=== PATIENT | male | born 1935 | race Caucasian/White ===

== ENCOUNTER 2016-08-06 14:46 | Outpatient (CLI) | payer MEDICARE ==
--- NOTE | 2016-08-06 21:51 | RAD ---
RIGHT KNEE FIVE VIEWS: Date: 08-06-16 FINDINGS: There is a large amount of soft tissue swelling anterior to the patella. Nevertheless, the patella appears intact with no sign of fracture. I see no joint effusion. The distal femur and proximal ti jasmyne appear intact. Osteoarthritis of the knee is noted with medial joint space narrowing and osteop hytes. Patellofemoral osteophytes are present as well. There is calcification in the distal SFA an d popliteal artery. IMPRESSION: Significant soft tissue swelling. POS: HOME
--- NOTE | 2016-08-06 21:59 | RAD ---
LEFT WRIST THREE VIEWS: Date: 08-06-16 FINDINGS: No acute fracture was seen. The carpal bones all currently appear intact. A small irregularity on the distal pole of the scaphoid does not appear acute. The scapholunate distance is borderline at 2 .7 mm. Sometimes, this can signify scapholunate disassociation. There is calcification of the radi al artery. IMPRESSION: No acute bony findings. Borderline increased distance between the scaphoid and lunate. POS: HOME
== END 2016-08-06 14:47 | disposition home or self-care (01) ==
LOC: BURRAD 14:46
PROVIDERS: ATTEND Family Medicine
DX: M25.532 Pain in left wrist (principal); M25.561 Pain in right knee; M79.89 Other specified soft tissue disorders

== ENCOUNTER 2016-10-18 10:30 | Outpatient (CLI) | payer MEDICARE ==
[2016-10-18 11:32] LABS: Anion Gap 15 mmol/L (10-20); BUN (Urea Nitrogen) 22 mg/dL (8.4-25.7); Calc. Creatinine Clearance 0 mL/min (70-130); Calcium 9.1 mg/dL (7.8-10.44); Carbon Dioxide 25 mmol/L (23-31); Chloride 106 mmol/L (98-107); Estimated GFR-MDRD 88; Glucose 150 mg/dL (83-110); Potassium 4.1 mmol/L (3.5-5.1); Sodium 142 mmol/L (136-145)
== END 2016-10-18 10:31 | disposition home or self-care (01) ==
LOC: BURLAB 10:30
PROVIDERS: ATTEND Internal Medicine Cardiovascular Disease
DX: E78.2 Mixed hyperlipidemia (principal); I48.2 Chronic atrial fibrillation; E11.9 Type 2 diabetes mellitus without complications
CPT/HCPCS: 36415; 80048

== ENCOUNTER 2016-11-12 16:13 | Outpatient (CLI) | payer MEDICARE | END 2016-11-12 16:14 | disposition home or self-care (01) | LOC: BURLAB 16:13 | PROVIDERS: ATTEND Urology | DX: C61 Malignant neoplasm of prostate (principal) | CPT/HCPCS: 36415; 84153 ==

== ENCOUNTER 2017-02-08 15:24 | Outpatient (CLI) | payer MEDICARE ==
[2017-02-08 16:21] LABS: ALT (SGPT) 14 U/L (8-55); AST (SGOT) 16 U/L (5-34); Albumin 4.5 g/dL (3.4-4.8); Alkaline Phosphatase 89 U/L (40-150); Anion Gap 13 mmol/L (10-20); BUN (Urea Nitrogen) 18 mg/dL (8.4-25.7); Bilirubin, Total 2.2 mg/dL (0.2-1.2); Calc. Creatinine Clearance 0 mL/min (70-130); Calcium 9.3 mg/dL (7.8-10.44); Carbon Dioxide 25 mmol/L (23-31); Cardiac Risk 3.1 (Less than 4.5); Chloride 104 mmol/L (98-107); Cholesterol 120 mg/dl (< 200 Desired); Estimated GFR-MDRD Greater than 90; Globulin 2.2 g/dL (2.4-3.5); Glucose 122 mg/dL (83-110); HDL Cholesterol 39 mg/dL (>60 Neg Risk); LDL Cholesterol, Calculated 61 mg/dL; Potassium 4.2 mmol/L (3.5-5.1); Protein, Total 6.7 g/dL (5.8-8.1); Sodium 138 mmol/L (136-145); Triglycerides 99 mg/dL (Less than 150)
[2017-02-08 16:36] LABS: #Basophils 0.1 thou/uL (0.0-0.2); #Eosinphils 0.2 thou/uL (0.0-0.7); #Lymphocytes 1.8 thou/uL (1.20-3.40); #Neutrophils 6.3 thou/uL (1.40-6.50); %Basophils 1.2 % (0.0-1.0); %Eosinophils 1.7 % (0.0-10.0); %Lymphocytes 19.1 % (21.0-51.0); %Monocytes 10.4 % (0.0-10.0); %Neutrophils 67.6 % (42.0-75.0); Hemoglobin 17.1 g/dL (14.0-18.0); MDiff Complete? YES; Macrocytosis SLIGHT = 6-15 cells (100X) (0-5/hpf); Mean Corpuscular HGB CONC 33.7 g/dL (32.0-36.0); Mean Corpuscular Hemoglobin 34.2 pg (27.0-31.0); Mean Platelet Volume 9.5 fL (7.4-10.4); Platelet Count 203 thou/uL (130-400); RBC Distribution Width 11.6 % (11.5-14.5); White Blood Cell (WBC) Count 9.3 thou/uL (4.8-10.8)
[2017-02-08 16:39] LABS: Free T4 (Free Thyroxine) 1.03 ng/dL (0.70-1.48); PSA-Asymptomatic (SCREENING) 0.5 ng/mL (0-4.0); Thyroid Stimulating Hormone 0.5401 uIU/mL (0.35-4.94)
[2017-02-09 15:38] LABS: Iron 124 ug/dL (65-175); Iron Binding Capacity, Total 256 mcg/dL (261-462)
[2017-02-12 05:00] LABS: Ferritin 97.87 ng/mL (22-322)
== END 2017-02-08 15:25 | disposition home or self-care (01) ==
LOC: HPCALD 15:24
PROVIDERS: ATTEND Family Medicine
DX: E78.5 Hyperlipidemia, unspecified (principal); E83.119 Hemochromatosis, unspecified; E11.9 Type 2 diabetes mellitus without complications; I10 Essential (primary) hypertension; R53.83 Other fatigue; Z79.899 Other long term (current) drug therapy; Z85.46 Personal history of malignant neoplasm of prostate
CPT/HCPCS: 36415; 80053; 80061; 82607; 82728; 83036; 83540; 83550; 84439; 84443; 85025; G0103

== ENCOUNTER 2017-08-13 15:14 | Outpatient (CLI) | payer MEDICARE ==
--- NOTE | 2017-08-13 21:45 | RAD ---
RIGHT HIP TWO VIEWS 08/13/17 No fracture, joint space narrowing, or other acute change was seen. The adjacent pubic ring appears i ntact. IMPRESSION: No acute findings. POS: HOME
== END 2017-08-13 15:15 | disposition home or self-care (01) ==
LOC: BURRAD 15:14
PROVIDERS: ATTEND Family Medicine
DX: M25.551 Pain in right hip (principal)

== ENCOUNTER 2024-06-22 15:16 | Emergency (ER) | payer MEDICARE | END 2024-06-22 15:35 | disposition home or self-care (01) | LOC: BURERS 15:16 | DX: H11.32 Conjunctival hemorrhage, left eye (principal); E11.9 Type 2 diabetes mellitus without complications; I10 Essential (primary) hypertension | CPT/HCPCS: 99282 ==